=== PATIENT | female | born 1975 | race Caucasian/White ===

== ENCOUNTER 2019-09-26 16:14 | Emergency (ER) | payer OTHER ==
[2019-09-26 16:30] VITALS: TEMP 97.8; BMI 26.9
--- NOTE | 2019-09-26 16:30 | PDOC ---
History of Present Illness - General Chief Complaint: Chest Pain Stated Complaint: CHEST PAIN Time Seen by Provider: 09/26/19 16:24 History Source: Patient Exam Limitations: No Limitations Past History - Past Medical History Allergies/Adverse Reactions: Allergies Allergy/AdvReac Type Severity Reaction Status Date / Time aloe vera Allergy Verified 09/26/19 16:32 levofloxacin [From Levaquin] Allergy Verified 09/26/19 16:32 metformin HCl Allergy Verified 09/26/19 16:32 [From Glucophage] Home Medications: Ambulatory Orders Calcium Carbonate/Vitamin D3 [Vitamin D-3 400 Units Tablet] 1 each PO DAILY Cetirizine HCl [Zyrtec] 10 mg PO DAILY 01/16/13 Diltiazem Cd [Cardizem Cd] 180 mg PO DAILY #90 cap.cd.24h 01/16/13 Glipizide [Glucotrol] 20 mg PO BID 01/16/13 Insulin Detemir [Levemir] 50 unit SQ HS 01/16/13 Losartan Potassium [Cozaar] 100 mg PO DAILY 01/16/13 Megestrol Acetate [Megace] 20 mg PO BID 01/16/13 Montelukast Na [Singulair] 10 mg PO HS 01/16/13 Pantoprazole Suspension [Protonix] 40 mg PO DAILY 01/16/13 Cardiac Disorders: Yes (TACHYCARDIA) COPD: No Diabetes: Yes Disorders: Yes (ENDOMETRIOSIS, PCOS) HTN: Yes Hypercholesterolemia: Yes - Psycho Social/Smoking Cessation Hx Smoking Status: No Smoking History: Never smoked Number of Cigarettes Smoked Daily: 0 Hx Alcohol Use: No Drug/Substance Use Hx: No Cardiac Specific PMH - Complaint Specific PMHX Abdominal Aortic Aneurysm: No Angina: No Cardiac Arrhythmia: No Cardiac Stent: No Pacemaker: No Pulmonary Embolus: No Valvular Heart Disease: No Peripheral Vascular Disease: No *Physical Exam - Vital Signs Last Vital Signs Temp Pulse Resp BP Pulse Ox 97.8 F 97 H 18 136/78 100 09/26/19 16:14 09/26/19 16:14 09/26/19 16:14 09/26/19 16:14 09/26/19 16:14 Medical Decision Making - Medical Decision Making 09/26/19 16:34 EKG shows NSR, HR 97, QTc 457, no ST changes Discharge - Discharge Information Condition: Stable - Follow up/Referral - Patient Discharge Instructions - Post Discharge Activity
[2019-09-26] MEDS ORDERED: MAG HYDROX/AL HYDROX/SIMETH 30 ML UNIT-DOSE CUP PO ONE (16:41)
[2019-09-26] MEDS ORDERED: SODIUM CHLORIDE 1,000 ML IV STA (16:41)
[2019-09-26] MEDS ORDERED: FAMOTIDINE 20 MG/50 ML IVPB 20 MG/50 ML MG IVPB ONE ×2 (16:41→17:13)
--- NOTE | 2019-09-26 16:47 | PDOC ---
History of Present Illness <Sonia Jorgensen I - Last Filed: 09/26/19 22:06> - General History Source: Patient <Nolberto Rey - Last Filed: 09/27/19 07:42> - General Chief Complaint: Chest Pain Stated Complaint: CHEST PAIN Time Seen by Provider: 09/26/19 16:24 - History of Present Illness Initial Comments: 09/26/19 16:42 44 F with h/o HLD, DM, presenting to ED with several days of intermittent midsternal chest pain. Pt describes pressure-like pain that comes and goes without any known exacerbating or alleviating factors. She denies any SOB or nausea associated with it. Pt states that her mother had a heart attack 3 days ago, and that is when she began to have chest pain as well. Pt denies any recent travel/immobilization. Denies any leg swelling/calf pain. However, pt is on OCPs. (Nolberto Rey) Past History <Sonia Jorgensen I - Last Filed: 09/26/19 22:06> - Past Medical History Cardiac Disorders: Yes (TACHYCARDIA) COPD: No Diabetes: Yes Disorders: Yes (ENDOMETRIOSIS, PCOS) HTN: Yes Hypercholesterolemia: Yes - Psycho Social/Smoking Cessation Hx Smoking Status: No Smoking History: Never smoked Number of Cigarettes Smoked Daily: 0 Hx Alcohol Use: No Drug/Substance Use Hx: No <Nolberto Rey - Last Filed: 09/27/19 07:42> - Past Medical History Allergies/Adverse Reactions: Allergies Allergy/AdvReac Type Severity Reaction Status Date / Time aloe vera Allergy Verified 09/26/19 16:32 levofloxacin [From Levaquin] Allergy Verified 09/26/19 16:32 metformin HCl Allergy Verified 09/26/19 16:32 [From Glucophage] Home Medications: Ambulatory Orders Calcium Carbonate/Vitamin D3 [Vitamin D-3 400 Units Tablet] 1 each PO DAILY Cetirizine HCl [Zyrtec] 10 mg PO DAILY 01/16/13 Diltiazem Cd [Cardizem Cd] 180 mg PO DAILY #90 cap.cd.24h 01/16/13 Glipizide [Glucotrol] 20 mg PO BID 01/16/13 Insulin Detemir [Levemir] 50 unit SQ HS 01/16/13 Losartan Potassium [Cozaar] 100 mg PO DAILY 01/16/13 Megestrol Acetate [Megace] 20 mg PO BID 01/16/13 Montelukast Na [Singulair] 10 mg PO HS 01/16/13 Pantoprazole Suspension [Protonix] 40 mg PO DAILY 01/16/13 Cardiac Specific PMH - Complaint Specific PMHX Abdominal Aortic Aneurysm: No Angina: No Cardiac Arrhythmia: No Cardiac Stent: No Pacemaker: No Pulmonary Embolus: No Valvular Heart Disease: No Peripheral Vascular Disease: No <Nolberto Rey - Last Filed: 09/27/19 07:42> Review of Systems <Sonia Jorgensen I - Last Filed: 09/26/19 22:06> <Nolberto Rey - Last Filed: 09/27/19 07:42> - Review of Systems Comments:: 09/26/19 16:43 "GENERAL/CONSTITUTIONAL: No fever or chills. No weakness. HEAD, EYES, EARS, NOSE AND THROAT: No change in vision. No ear pain or discharge. No sore throat. CARDIOVASCULAR: + chest pain, no shortness of breath, no loss of consciousness RESPIRATORY: No cough, wheezing, or hemoptysis. GASTROINTESTINAL: No nausea, vomiting, diarrhea or constipation. GENITOURINARY: No dysuria, frequency, or change in urination. MUSCULOSKELETAL: No joint or muscle swelling or pain. No neck or back pain. SKIN: No rash NEUROLOGIC: No vertigo, no change in strength/sensation. ENDOCRINE: No increased thirst. No abnormal weight change. HEMATOLOGIC/LYMPHATIC: No anemia, easy bleeding, or history of blood clots. ALLERGIC/IMMUNOLOGIC: No hives or skin allergy. (Nolberto Rey) *Physical Exam <Sonia Jorgensen I - Last Filed: 09/26/19 22:06> <Nolberto Rey - Last Filed: 09/27/19 07:42> - Vital Signs Last Vital Signs Temp Pulse Resp BP Pulse Ox 97.8 F 85 14 129/71 100 09/26/19 16:14 09/26/19 19:31 09/26/19 19:31 09/26/19 19:31 09/26/19 19:31 - Physical Exam 09/26/19 16:44 "GENERAL: Awake, alert, and fully oriented, in no acute distress. HEAD: No signs of trauma EYES: PERRLA, EOMI, sclera anicteric, conjunctiva clear ENT: Auricles normal inspection, hearing grossly normal, nares patent, oropharynx clear without exudates. Moist mucosa NECK: Nontender, no stepoffs, Normal ROM, supple, no lymphadenopathy, JVD, or masses LUNGS: Breath sounds equal, clear to auscultation bilaterally. No wheezes, and no crackles HEART: Regular rate and rhythm, normal S1 and S2, no murmurs, rubs or gallops ABDOMEN: + epigastric TTP, normoactive bowel sounds. No guarding, no rebound. No masses EXTREMITIES: Normal range of motion, no edema. No clubbing or cyanosis. No cords, erythema, or tenderness NEUROLOGICAL: Cranial nerves II through XII intact. 5/5 strength and sensation in all extremities, Normal speech, normal gait, normal cerebellar function SKIN: Warm, Dry, normal turgor, no rashes or lesions noted. (Nolberto Rey) Heart Score/ECG Review <Sonia Jorgensen I - Last Filed: 09/26/19 22:06> - History History: Slightly suspicious - Electrocardiogram EKG: Normal - Age Age: </= 45 - Risk Factors Risk Factors Heart Score: Yes Hx Hypercholesterolemia, Yes Hx Diabetes, Yes Positive family hx of cardiac disease Based on the list above the patient has:: >/=3 risk factors or Hx atherosclerotic disease - Troponin Troponin: </= normal limit - Score Heart Score - Total: 2 <Nolberto Rey - Last Filed: 09/27/19 07:42> - ECG Impressions Comment:: 09/26/19 16:44 NSR, no SHONDA/STDs, no TWIs, axis wnl, intervals wnl, rate 97 (Nolberto Rey) ED Treatment Course - LABORATORY CBC & Chemistry Diagram: 09/26/19 17:00 09/26/19 16:55 <Sonia Jorgensen I - Last Filed: 09/26/19 22:06> - LABORATORY CBC & Chemistry Diagram: 09/26/19 17:00 09/26/19 16:55 <Nolberto Rey - Last Filed: 09/27/19 07:42> - ADDITIONAL ORDERS Additional order review: 09/26/19 17:00 RBC 4.65 MCV 91.1 MCHC 32.6 RDW 12.9 MPV 8.4 Neutrophils % 62.3 Lymphocytes % 29.3 Monocytes % 5.5 Eosinophils % 2.1 Basophils % 0.8 - RADIOLOGY Radiology Studies Ordered: Category Date Time Status CHEST PA & LAT [RAD] Stat Radiology 09/26/19 16:48 Completed - Medications Given in the ED: ED Medications Discontinued Medications Generic Name Dose Route Start Last Admin Trade Name Julio César PRN Reason Stop Dose Admin Acetaminophen 1,000 mg 09/26/19 16:48 09/26/19 17:45 Ofirmev Injection - IVPB 09/26/19 16:49 1,000 mg ONCE ONE Administration Al Hydroxide/Mg Hydroxide 30 ml 09/26/19 16:41 09/26/19 17:22 Mylanta Oral Suspension - PO 09/26/19 16:42 30 ml ONCE ONE Administration Famotidine/Sodium Chloride 20 mg in 50 mls @ 100 mls/hr 09/26/19 16:41 17:22 Pepcid 20 Mg Premixed Ivpb - IVPB 09/26/19 17:10 100 mls/hr ONCE ONE Administration Sodium Chloride 1,000 mls @ 1,000 mls/hr 09/26/19 16:41 09/26/19 17:22 Normal Saline - IV 09/26/19 17:40 1,000 mls/hr ASDIR STA Administration Medical Decision Making <Sonia Jorgensen I - Last Filed: 09/26/19 22:06> <Nolberto Rey - Last Filed: 09/27/19 07:42> - Medical Decision Making 09/26/19 16:47 44 F with HLD, DM, presenting with chest pain. Exam notable for epigastric TTP. Possible gastritis/PUD/acid reflux. EKG with no ischemic changes, making ACS unlikely. Pt denies SOB but is on OCPs, so will r/o PE with ddimer. - Labs, trop, ddimer - CXR - IVF, GI cocktail 09/26/19 18:05 Trop negative Pt with Cr 1.5, which she states is baseline CXR clear Ddimer negative Pt is well appearing, with normal vitals. Clinically stable for DC at this time. I discussed the physical exam findings, ancillary test results and final diagnoses with the patient. I answered all of the patient's questions. The patient was satisfied with the care received and felt comfortable with the discharge plan and treatment plan. The patient agrees to follow up with the primary care physician within 24-72 hours. (Nolberto Rey) Discharge <Sonia Jorgensen I - Last Filed: 09/26/19 22:06> - Discharge Information Problems reviewed: Yes <Nolberto Rey - Last Filed: 09/27/19 07:42> - Discharge Information Clinical Impression/Diagnosis: Chest pain Condition: Stable Disposition: HOME - Patient Discharge Instructions Patient Printed Discharge Instructions: DI for Atypical Chest Pain Additional Instructions: Your bloodwork, EKG, and chest X ray were normal today. However, this does not rule out all serious problems. Please follow up with your primary doctor within 48 hours for further evaluation of your chest pain. If you experience recurrent or persistent chest pain, shortness of breath, fevers, abdominal pain, or any other concerning symptoms, return to the ER immediately.
[2019-09-26] MEDS ORDERED: ACETAMINOPHEN 1000 MG/100 ML VIAL (NON FORMULARY) IVPB ONE (16:48)
[2019-09-26] MEDS ORDERED: ACETAMINOPHEN INJECTION 100 ML IVPB ONE (17:13)
[2019-09-26] MEDS ORDERED: MAG HYDROX/AL HYDROX/SIMETH 30 ML UNIT-DOSE CUP ONE (17:13)
[2019-09-26 17:18] LABS: BASO % 0.8 % (0-2.0); EOS % 2.1 % (0-4.5); HEMATOCRIT 42.3 % (32.4-45.2); HEMOGLOBIN 13.8 GM/dl (10.7-15.3); LYMPH % 29.3 % (8-40); MCH 29.7 pg (25.7-33.7); MCHC 32.6 g/dl (32.0-36.0); MEAN CELL VOLUME 91.1 fl (80-96); MEAN PLT VOLUME 8.4 fl (7.5-11.1); MONO % 5.5 % (3.8-10.2); NEUT % 62.3 % (42.8-82.8); PLATELET COUNT 328 K/MM3 (134-434); RBC 4.65 M/mm3 (3.60-5.2); RDW 12.9 % (11.6-15.6); WHITE BLOOD COUNT 8.9 K/mm3 (4.0-10.8)
[2019-09-26 17:27] LABS: INR 1.03 (0.82-1.09); PROTHROMBIN TIME (PATIENT) 11.5 SEC (10.2-13.0)
[2019-09-26 17:39] LABS: ALBUMIN 4.3 g/dl (3.4-5.0); BILIRUBIN,TOTAL 0.4 mg/dl (0.2-1); CALCIUM 9.5 mg/dl (8.5-10); CREATININE 1.5 mg/dl (0.55-1.3); POTASSIUM 4.8 mmol/L (3.5-5.1)
[2019-09-26 19:32] VITALS: BP 129/71; PULSE 85
--- NOTE | 2019-09-27 10:44 | EKG ---
Test Reason : Blood Pressure : / mmHG Vent. Rate : 097 BPM Atrial Rate : 097 BPM P-R Int : 140 ms QRS Dur : 080 ms QT Int : 360 ms P-R-T Axes : 014 063 055 degrees QTc Int : 457 ms NORMAL SINUS RHYTHM NORMAL ECG NO PREVIOUS ECGS AVAILABLE Confirmed by MAGY DANGELO MD ([id number]) on 09/27/2019 10:44:38 AM Referred By: MD LLOYD Confirmed By:MAGY DANGELO MD
== END 2019-09-26 19:32 | disposition home or self-care (01) ==
LOC: FER 16:14
PROC: 3E033NZ Introduction of Analgesics, Hypnotics, Sedatives into Peripheral Vein, Percutaneous Approach (ICD-10-PCS; principal; 2019-09-26)
PROC: 3E033GC Introduction of Other Therapeutic Substance into Peripheral Vein, Percutaneous Approach (ICD-10-PCS; 2019-09-26)
DX: R07.9 Chest pain, unspecified (principal)
CPT/HCPCS: 36415; 71046-TC-FY; 80053; 82550; 83690; 84484; 84703; 85025; 85379; 85610; 85730; 93005; 99285-25; J0131; J7030

== ENCOUNTER 2021-08-06 15:45 | Emergency (ER) | payer OTHER ==
[2021-08-06 16:11] VITALS: BP 149/97; PULSE 106; TEMP 97.6; BMI 29.2
[2021-08-06] MEDS ORDERED: LIDOCAINE 5% TOPICAL PATCH TP ONE (16:16)
[2021-08-06] MEDS ORDERED: LIDOCAINE 5% TOPICAL PATCH ONE (16:21)
[2021-08-06] MEDS ORDERED: LIDOCAINE PATCH REMOVAL MC SCH (22:00)
== END 2021-08-06 16:55 | disposition left against medical advice (07) ==
LOC: FER 15:45
DX: M54.6 Pain in thoracic spine (principal)
CPT/HCPCS: 99284-25